=== PATIENT | male | born 1950 | race Hispanic/Latino ===

== ENCOUNTER → 2017-10-16 | Outpatient (CLI) | payer OTHER ==
[~2017-10-16] MED LIST: ALPR0.5T8 PO; CEPH500C2 PO; METO-391 PO; MIRT30TA6 PO; OMEP20CA10 PO; RIVA20TA PO; SERT100T12 PO; SOTA120T PO; SOTA80TA PO
== END | disposition home or self-care (01) ==
LOC: SHCH 13:00
PROVIDERS: ATTEND Internal Medicine Cardiovascular Disease
DX: I08.1 Rheumatic disorders of both mitral and tricuspid valves (principal); I50.22 Chronic systolic (congestive) heart failure; I48.1 Persistent atrial fibrillation
CPT/HCPCS: 93306

== ENCOUNTER 2017-11-02 10:02 | Inpatient (IN) | payer OTHER ==
[~2017-11-02] VITALS: Ht 180.3 cm; Wt 131.0 kg
[2017-11-02 10:55] VITALS: BP 146/90
[2017-11-02] MEDS ORDERED: FAMOTIDINE 20MG TAB 20 MG TAB PO SCH ×2 (11:00→21:00)
[2017-11-02] MEDS ORDERED: SODIUM CHLORIDE 0.9% 10 ML VIAL IVP PRN (11:00)
[2017-11-02] MEDS ORDERED: SOTALOL HCL 80 MG TABLET PO SCH (11:00)
[2017-11-02] MEDS ORDERED: METO-391 PO (11:18)
[2017-11-02] MEDS ORDERED: ALPR0.5T8 PO (11:18)
[2017-11-02] MEDS ORDERED: OMEP20CA10 PO (11:18)
[2017-11-02] MEDS ORDERED: MIRT30TA6 PO (11:18)
[2017-11-02] MEDS ORDERED: SERT100T12 PO (11:18)
[2017-11-02] MEDS ORDERED: RIVA20TA PO (11:18)
[2017-11-02 11:27] LABS: MEAN CORPUSCULAR HEMOGLOBIN 32.8 pg (27.0-33.0); MEAN CORPUSCULAR HGB CONC 34.3 g/dL (32.0-36.0); MEAN CORPUSCULAR VOLUME 95.6 fL (79-99); PLATELET COUNT (AUTO) 110 K/uL (130-400); RED BLOOD CELL COUNT(AUTO) 5.12 MIL/uL (4.50-6.20); RED CELL DISTRIBUTION WIDTH 15.7 % (11.0-15.5); WHITE BLOOD COUNT (AUTO) 5.4 K/uL (4.8-10.8)
[2017-11-02 11:43] LABS: ALANINE AMINOTRANSFERASE 45 U/L (12-78); ALBUMIN 3.3 g/dL (3.5-5.0); ASPARTATE AMINOTRANSFERASE 84 U/L (10-37); BILIRUBIN,TOTAL 1.6 mg/dL (0.2-1.0); CARBON DIOXIDE 30 mmol/L (21-32); CHLORIDE 105 mmol/L (101-111); CREATININE 1.3 mg/dL (0.5-1.5); GLOMERULAR FILTR. RATE CALC 59 mL/min (>60); GLUCOSE,RANDOM 130 mg/dL (70-105); POTASSIUM 4.3 mmol/L (3.5-5.1); SODIUM SERUM 141 mmol/L (136-145); TOTAL PROTEIN, SERUM 7.3 g/dL (6.0-8.3); UREA NITROGEN, BLOOD 12 mg/dL (7-18)
[2017-11-02 11:45] LABS: ALCOHOL, BLOOD < 3 mg/dL (0-10)
[2017-11-02 11:54] LABS: INR 1.75 (0.85-1.15); PARTIAL THROMBOPLASTIN TIME 41.3 SEC (26.3-35.5); PROTHROMBIN TIME 18.2 SEC (9.6-11.6)
[2017-11-02 12:25] LABS: BASOPHILS % (MANUAL) 1 % (0-2); EOSINOPHILS % (MANUAL) 3 % (1-6); LYMPHOCYTES % (MANUAL) 15 % (22-44); MAN.DIFF COMMENT-IMPRESSION MANUAL DIFFERENTIAL; MONOCYTES % (MANUAL) 11 % (2-9); PLATELET MORPHOLOGY COMMENT SLIGHTLY DECREASED; REACTIVE LYMPHOCYTES 13 % (0-0); SEGMENTED NEUTROPHILS % 57 % (40-70)
[2017-11-02] MEDS ORDERED: METOPROLOL TARTRATE 1 MG/ML 5ML VIAL IV PRN (12:30)
[2017-11-02] MEDS ORDERED: THIAMINE HCL IV SCH (12:45)
[2017-11-02] MEDS ORDERED: PHARMACY COMMUNICATION MISC ONE (12:45)
[2017-11-02] MEDS ORDERED: SODIUM CHLORIDE 0.9% IV SCH (12:45)
[2017-11-02] MEDS ORDERED: M V I IV SCH (12:45)
[2017-11-02] MEDS ORDERED: COMPOUND IV REFRIGERATED 1 EACH IVSOLN MISC PRN (13:00)
[2017-11-02] MEDS: ALPRAZOLAM 0.5 MG TABLET PO PRN (15:04)
[2017-11-02] MEDS: MAGNESIUM 2GM PREMIX 50ML 50 ML IV SCH (15:09)
[2017-11-02] MEDS ORDERED: HYDROCODONE/ACETAMINOPHEN 5/325 MG TAB PO PRN (15:30)
[2017-11-02] MEDS: HYDROCODONE/ACETAMINOPHEN 5/325 MG TAB PO PRN (15:58)
[2017-11-02 16:00] VITALS: BP 154/100
[2017-11-02 19:32] VITALS: BP 150/98
[2017-11-02] MEDS: MIRTAZAPINE 15 MG TABLET PO SCH (21:03)
[2017-11-02] MEDS: SOTALOL HCL 80 MG TABLET PO SCH (21:06)
[2017-11-02 23:48] VITALS: BP 126/75
[2017-11-03] MEDS ORDERED: LACTULOSE 20 GM/30 ML UDCUP PO PRN (01:15)
[2017-11-03] MEDS ORDERED: ONDANSETRON HCL 4 MG/2 ML VIAL IVP PRN (01:15)
[2017-11-03 03:23] VITALS: BP 129/93
[2017-11-03 03:52] LABS: HEMATOCRIT 47.3 % (42-54); MEAN CORPUSCULAR HEMOGLOBIN 32.9 pg (27.0-33.0); MEAN CORPUSCULAR HGB CONC 33.9 g/dL (32.0-36.0); MEAN CORPUSCULAR VOLUME 97.1 fL (79-99); NUCLEATED RED BLOOD CELLS 0.1 % (0.0-0.19); PLATELET COUNT (AUTO) 90 K/uL (130-400); RED BLOOD CELL COUNT(AUTO) 4.88 MIL/uL (4.50-6.20); RED CELL DISTRIBUTION WIDTH 15.5 % (11.0-15.5); WHITE BLOOD COUNT (AUTO) 4.1 K/uL (4.8-10.8)
[2017-11-03 04:02] LABS: CREATININE 1.1 mg/dL (0.5-1.5); MAGNESIUM 1.8 mg/dL (1.80-2.40); POTASSIUM 3.8 mmol/L (3.5-5.1)
[2017-11-03] MEDS: MAGNESIUM 2GM PREMIX 50ML 50 ML IV SCH (05:58)
[2017-11-03 07:00] VITALS: BP 154/92
[2017-11-03] MEDS: SOTALOL HCL 80 MG TABLET PO SCH ×2 (07:43→20:29)
[2017-11-03] MEDS: RIVAROXABAN 20 MG TABLET PO SCH (07:44)
[2017-11-03] MEDS: SERTRALINE HCL 50 MG TABLET PO SCH (07:44)
[2017-11-03] MEDS: PANTOPRAZOLE SODIUM 40 MG TABLET.DR PO SCH (07:44)
[2017-11-03] MEDS ORDERED: FAMOTIDINE 20MG TAB 20 MG TAB PO SCH (09:00)
[2017-11-03] MEDS ORDERED: RIVAROXABAN 20 MG TABLET PO SCH (09:00)
[2017-11-03] MEDS ORDERED: SOTALOL HCL 80 MG TABLET PO SCH (10:30)
[2017-11-03 11:00] VITALS: BP 145/96
[2017-11-03] MEDS: HYDROCODONE/ACETAMINOPHEN 5/325 MG TAB PO PRN ×2 (15:51→20:30)
[2017-11-03 15:52] LABS: APPEARANCE,URINE Clear (CLEAR); BILIRUBIN,URINE Negative (NEGATIVE); COLOR,URINE Yellow (YELLOW); GLUCOSE, URINE (UA) Negative (NEGATIVE); KETONES,URINE Negative (NEGATIVE); LEUKOCYTE ESTERASE ,URINE Moderate (NEGATIVE); NITRATE,URINE Negative (NEGATIVE); OCCULT BLOOD,URINE Nonhemolyzed Trace (NEGATIVE); PH,URINE 6.5 (5.0-8.0); PROTEIN,URINE Negative (NEGATIVE)
[2017-11-03 16:00] VITALS: BP 155/101
[2017-11-03 16:40] LABS: BACTERIA,URINE Rare /HPF (None Seen); SQUAMOUS EPITHELIAL CELL,UR Rare /HPF (0-2)
[2017-11-03 19:48] VITALS: BP 147/106
[2017-11-03] MEDS: MIRTAZAPINE 15 MG TABLET PO SCH (20:28)
[2017-11-03] MEDS: ALPRAZOLAM 0.5 MG TABLET PO PRN (21:29)
[2017-11-03 23:18] VITALS: BP 156/107
[2017-11-04 03:36] VITALS: BP 143/96
[2017-11-04 03:54] LABS: MEAN CORPUSCULAR HEMOGLOBIN 32.8 pg (27.0-33.0); MEAN CORPUSCULAR HGB CONC 33.9 g/dL (32.0-36.0); MEAN CORPUSCULAR VOLUME 96.8 fL (79-99); NUCLEATED RED BLOOD CELLS 0.1 % (0.0-0.19); PLATELET COUNT (AUTO) 97 K/uL (130-400); RED BLOOD CELL COUNT(AUTO) 4.96 MIL/uL (4.50-6.20); RED CELL DISTRIBUTION WIDTH 15.4 % (11.0-15.5); WHITE BLOOD COUNT (AUTO) 4.6 K/uL (4.8-10.8)
[2017-11-04 04:09] LABS: CREATININE 1.2 mg/dL (0.5-1.5); MAGNESIUM 1.9 mg/dL (1.80-2.40); PHOSPHORUS 3.3 mg/dL (2.5-4.9)
[2017-11-04 07:57] VITALS: BP 159/91
[2017-11-04] MEDS: SOTALOL HCL 80 MG TABLET PO SCH ×2 (08:35→20:36)
[2017-11-04 10:05] LABS: ALBUMIN 3.2 g/dL (3.5-5.0); BILIRUBIN,DIRECT 0.5 mg/dL (0.0-0.3); BILIRUBIN,TOTAL 1.5 mg/dL (0.2-1.0); TOTAL PROTEIN, SERUM 6.9 g/dL (6.0-8.3)
[2017-11-04 10:45] VITALS: BP 161/115
[2017-11-04] MEDS: RIVAROXABAN 20 MG TABLET PO SCH (13:25)
[2017-11-04] MEDS: FOLIC ACID 1 MG TABLET PO SCH (13:26)
[2017-11-04] MEDS: CEPHALEXIN 500 MG CAPSULE PO SCH ×2 (13:26→20:36)
[2017-11-04] MEDS: SERTRALINE HCL 50 MG TABLET PO SCH (13:26)
[2017-11-04] MEDS: THIAMINE HCL 100 MG TABLET PO SCH (13:26)
[2017-11-04] MEDS: MULTIVITAMIN TABLET PO SCH (13:27)
[2017-11-04] MEDS: PANTOPRAZOLE SODIUM 40 MG TABLET.DR PO SCH (13:27)
[2017-11-04 16:00] VITALS: BP 139/84
[2017-11-04 19:37] VITALS: BP 121/75
[2017-11-04] MEDS: HYDROCODONE/ACETAMINOPHEN 5/325 MG TAB PO PRN (19:57)
[2017-11-04] MEDS: MIRTAZAPINE 15 MG TABLET PO SCH (20:36)
[2017-11-04 23:29] VITALS: BP 136/45
[2017-11-05 03:59] VITALS: BP 103/71
[2017-11-05 05:01] LABS: CREATININE 1.3 mg/dL (0.5-1.5); MAGNESIUM 1.8 mg/dL (1.80-2.40); POTASSIUM 3.6 mmol/L (3.5-5.1)
[2017-11-05] MEDS: MAGNESIUM 2GM PREMIX 50ML 50 ML IV SCH (06:21)
[2017-11-05 07:00] VITALS: BP 123/88
[2017-11-05] MEDS: MULTIVITAMIN TABLET PO SCH (10:04)
[2017-11-05] MEDS: CEPHALEXIN 500 MG CAPSULE PO SCH (10:05)
[2017-11-05] MEDS: PANTOPRAZOLE SODIUM 40 MG TABLET.DR PO SCH (10:05)
[2017-11-05] MEDS: FOLIC ACID 1 MG TABLET PO SCH (10:05)
[2017-11-05] MEDS: THIAMINE HCL 100 MG TABLET PO SCH (10:05)
[2017-11-05] MEDS: SOTALOL HCL 80 MG TABLET PO SCH (10:05)
[2017-11-05] MEDS: RIVAROXABAN 20 MG TABLET PO SCH (10:05)
[2017-11-05] MEDS: SERTRALINE HCL 50 MG TABLET PO SCH (10:05)
[2017-11-05] MEDS ORDERED: CEPH500C2 PO (10:08)
[2017-11-05] MEDS ORDERED: SOTA80TA PO (10:08)
[2017-11-05 11:00] VITALS: BP 130/81
[2017-11-05] MEDS ORDERED: POTASSIUM CHLORIDE 20 MEQ ERTAB PO ONE (12:45)
[2017-11-05] MEDS: HYDROCODONE/ACETAMINOPHEN 5/325 MG TAB PO PRN (14:47)
[2017-11-05] MEDS ORDERED: SOTA120T PO (14:51)
== END 2017-11-05 15:50 | disposition home or self-care (01) | DRG 309 ==
LOC: EDH 10:02 → 2AH 10:03
PROVIDERS: ADMIT Internal Medicine; ATTEND Internal Medicine
PROC: 5A2204Z Restoration of Cardiac Rhythm, Single (ICD-10-PCS; principal; 2017-11-05)
DX: I48.1 Persistent atrial fibrillation (principal); I50.22 Chronic systolic (congestive) heart failure; D69.6 Thrombocytopenia, unspecified; I42.0 Dilated cardiomyopathy; I11.0 Hypertensive heart disease with heart failure; E78.5 Hyperlipidemia, unspecified; F10.10 Alcohol abuse, uncomplicated; F32.9 Major depressive disorder, single episode, unspecified; G47.33 Obstructive sleep apnea (adult) (pediatric); I25.10 Atherosclerotic heart disease of native coronary artery without angina pectoris; I48.2 Chronic atrial fibrillation; I25.5 Ischemic cardiomyopathy; K21.9 Gastro-esophageal reflux disease without esophagitis; K70.30 Alcoholic cirrhosis of liver without ascites; K76.0 Fatty (change of) liver, not elsewhere classified; Z79.01 Long term (current) use of anticoagulants; Z88.8 Allergy status to other drugs, medicaments and biological substances; Z88.1 Allergy status to other antibiotic agents
CPT/HCPCS: 36415; 76700; 80048; 80053; 80061; 80076; 81001; 83735; 84100; 85025; 85027; 85610; 85730; 92960; 93005; G0480; J3411; J3475; J7030

== ENCOUNTER 2019-01-20 15:22 | Inpatient (IN) | payer OTHER ==
[~2019-01-20] VITALS: Ht 180.3 cm; Wt 137.3 kg
[~2019-01-20 15:22] MED LIST changes: -METO-391 PO; -SOTA80TA PO
[2019-01-20 15:41] LABS: BASOPHILS % (AUTO) 1.2 % (0.0-5.0); EOSINOPHILS % (AUTO) 0.4 % (0.0-8.0); HEMATOCRIT 48.2 % (42-54); LYMPHOCYTES % (AUTO) 21.7 % (21.0-51.0); MEAN CORPUSCULAR HEMOGLOBIN 32.5 pg (27.0-33.0); MEAN CORPUSCULAR HGB CONC 33.8 g/dL (32.0-36.0); MEAN CORPUSCULAR VOLUME 96.1 fL (79-99); MONOCYTES % (AUTO) 13.3 % (3.0-13.0); NEUTROPHILS % (AUTO) 63.4 % (40.0-77.0); NUCLEATED RED BLOOD CELLS 0.1 % (0.0-0.19); PLATELET COUNT (AUTO) 122 K/uL (130-400); RED BLOOD CELL COUNT(AUTO) 5.01 MIL/uL (4.50-6.20); RED CELL DISTRIBUTION WIDTH 17.3 % (11.0-15.5); WHITE BLOOD COUNT (AUTO) 8.1 K/uL (4.8-10.8)
[2019-01-20 15:55] LABS: CREATININE 1.1 mg/dL (0.5-1.5); POTASSIUM 4.2 mmol/L (3.5-5.1)
[2019-01-20 15:57] LABS: INR 1.37 (0.85-1.15); PARTIAL THROMBOPLASTIN TIME 32.1 SEC (26.3-35.5); PROTHROMBIN TIME 14.3 SEC (9.6-11.6)
[2019-01-20 16:00] LABS: BILIRUBIN,TOTAL 3.8 mg/dL (0.2-1.0); TOTAL PROTEIN, SERUM 6.8 g/dL (6.0-8.3)
[2019-01-20] MEDS ORDERED: HYDROCODONE/ACETAMINOPHEN 10/325 MG TAB ONE (18:33)
[2019-01-20] MEDS ORDERED: HYDROCODONE/ACETAMINOPHEN 5/325 MG TAB PO PRN ×2 (19:30)
[2019-01-20] MEDS ORDERED: ACETAMINOPHEN 650 MG SUPPOSITORY RC PRN ×2 (19:30)
[2019-01-20] MEDS ORDERED: KETOROLAC TROMETHAMINE 15MG/ML IV PRN (19:30)
[2019-01-20] MEDS ORDERED: NITROGLYCERIN 0.4 MG SL TAB SL PRN (19:30)
[2019-01-20] MEDS ORDERED: ONDANSETRON HCL 4 MG/2 ML VIAL IV PRN (19:30)
[2019-01-20 20:00] VITALS: BP 128/96
[2019-01-20 20:55] LABS: AMYLASE 54 U/L (25-115); LIPASE 193 U/L (114-286)
[2019-01-20] MEDS: SODIUM CHLORIDE 0.9% 1000ML 1,000 ML IV SCH (21:32)
[2019-01-20] MEDS: FAMOTIDINE/PF 20 MG/2 ML VIAL IV SCH (21:32)
[2019-01-20 22:11] LABS: HEMATOCRIT 44.9 % (42-54)
[2019-01-20] MEDS ORDERED: DIGO250T84 PO (22:17)
[2019-01-20] MEDS ORDERED: TRAM100T34 PO (22:17)
[2019-01-20] MEDS ORDERED: DILT120C12 PO (22:17)
[2019-01-20] MEDS ORDERED: NYST15CR TP (22:17)
[2019-01-20] MEDS ORDERED: SERT50TA12 PO (22:17)
[2019-01-20] MEDS ORDERED: METO-409 PO (22:17)
[2019-01-20] MEDS ORDERED: RIVA20TA PO (22:17)
[2019-01-20 22:52] LABS: APPEARANCE,URINE Clear (CLEAR); BILIRUBIN,URINE Moderate (NEGATIVE); GLUCOSE, URINE (UA) Negative (NEGATIVE); KETONES,URINE Negative (NEGATIVE); LEUKOCYTE ESTERASE ,URINE Moderate (NEGATIVE); NITRATE,URINE Positive (NEGATIVE); OCCULT BLOOD,URINE Trace (NEGATIVE); PROTEIN,URINE POS 1+ mg/dL (NEGATIVE)
[2019-01-20 22:53] LABS: COLOR,URINE Orange (YELLOW)
[2019-01-20 23:15] LABS: AMPHET/METH SCREEN,URINE NEGATIVE (NEGATIVE); BARBITURATE SCREEN, URINE NEGATIVE (NEGATIVE); BENZODIAZEPINES SCREEN,URINE POSITIVE (NEGATIVE); CANNABINOID SCREEN,URINE NEGATIVE (NEGATIVE); COCAINE SCREEN,URINE NEGATIVE (NEGATIVE); OPIATE SCREEN,URINE NEGATIVE (NEGATIVE); PHENCYCLIDINE SCREEN,URINE NEGATIVE (NEGATIVE)
[2019-01-20 23:29] LABS: AMORPHOUS SEDIMENT,UR Many /LPF (None Seen); BACTERIA,URINE Rare /HPF (None Seen); MUCUS,URINE Moderate LPF (None Seen); RBC,URINE 0-1 /HPF (0-1); SQUAMOUS EPITHELIAL CELL,UR Few /HPF (0-2)
[2019-01-21 00:19] VITALS: BP 140/81
[2019-01-21] MEDS: MORPHINE SULFATE 2 MG/ML 1ML SYG IV PRN (02:10)
[2019-01-21 04:04] VITALS: BP 113/62
[2019-01-21 04:10] LABS: BASOPHILS % (AUTO) 1.1 % (0.0-5.0); EOSINOPHILS % (AUTO) 1.9 % (0.0-8.0); HEMATOCRIT 42.9 % (42-54); LYMPHOCYTES % (AUTO) 23.1 % (21.0-51.0); MEAN CORPUSCULAR HEMOGLOBIN 33.6 pg (27.0-33.0); MEAN CORPUSCULAR HGB CONC 34.5 g/dL (32.0-36.0); MEAN CORPUSCULAR VOLUME 97.6 fL (79-99); MONOCYTES % (AUTO) 12.2 % (3.0-13.0); NEUTROPHILS % (AUTO) 61.7 % (40.0-77.0); NUCLEATED RED BLOOD CELLS 0.1 % (0.0-0.19); PLATELET COUNT (AUTO) 86 K/uL (130-400); RED CELL DISTRIBUTION WIDTH 17.3 % (11.0-15.5); WHITE BLOOD COUNT (AUTO) 5.3 K/uL (4.8-10.8)
[2019-01-21 04:45] LABS: ALBUMIN 2.4 g/dL (3.5-5.0); BILIRUBIN,TOTAL 3.3 mg/dL (0.2-1.0); POTASSIUM 4.2 mmol/L (3.5-5.1); TOTAL PROTEIN, SERUM 5.7 g/dL (6.0-8.3)
[2019-01-21] MEDS: SODIUM CHLORIDE 0.9% 1000ML 1,000 ML IV SCH (05:17)
[2019-01-21 07:30] VITALS: BP 159/87
[2019-01-21] MEDS: FAMOTIDINE/PF 20 MG/2 ML VIAL IV SCH (09:37)
[2019-01-21 10:20] LABS: HEMATOCRIT 44.4 % (42-54)
[2019-01-21] MEDS ORDERED: ALPRAZOLAM 0.5 MG TABLET PO PRN (10:45)
[2019-01-21 11:00] VITALS: BP 164/97
--- NOTE | 2019-01-21 11:33 | NUR ---
PHOENIX Chacon met with pt who states he lives alone. Pt reports he completes ADLS with difficulty, getting to point he needs help. Pt drives, uses [facility]. Sees Dr Jerrod Valencia and uses [facility]. Brother Pineda [phone] and sister in law Isabel [phone] are ER contacts and will transport home at [place] Addendum: 01/21/19 at 1135 by ASHLEY MORTON Amended: Links added.
[2019-01-21] MEDS: MORPHINE SULFATE 4 MG/1ML SYG IV PRN ×2 (13:43→20:46)
--- NOTE | 2019-01-21 15:30 | NUR ---
TELEPHONE CALL FROM DR SALDANA , ORDERS RECEIVED FOR PATIENT TO BE NPO @ [facility] AND CONSENT AND SCHEDULE FOR EGD IN AM , ORDER FAXED TO HOUSE AND CENTRAL SCHEDULING CONTACTED AND CASE SCHEDULED FOR 629.
[2019-01-21 16:00] VITALS: BP 151/92
[2019-01-21 16:45] LABS: HEMATOCRIT 46.8 % (42-54)
[2019-01-21 20:13] VITALS: BP 167/117
[2019-01-21] MEDS: METOPROLOL TARTRATE 50 MG TAB PO SCH (20:42)
[2019-01-21] MEDS: SERTRALINE HCL 50 MG TABLET PO SCH (20:42)
[2019-01-21] MEDS: MIRTAZAPINE 15 MG TABLET PO SCH (20:42)
[2019-01-21] MEDS: NYSTATIN 30 GM CREAM.GM. TP SCH (20:45)
[2019-01-21 22:27] LABS: HEMATOCRIT 45.6 % (42-54)
[2019-01-21] MEDS: CEFTRIAXONE SODIUM 1 GM IVP SCH ×2 (23:20)
[2019-01-22] VITALS (19 sets, daily range): BP systolic 89–159; BP diastolic 31–99
[2019-01-22] MEDS ORDERED: EPHEDRINE SULFATE 50 MG/ML AMPULE ONE (07:07)
--- NOTE | 2019-01-22 07:40 | NUR ---
REPORT CALLED ON S/P EGD , PATIENT ALERT AND ORIENTATED X 3 EGD NEGATIVE FINDINGS HERNIA, MAY ADVANCE DIET TOLERATES B/P 122/76 P 83 R 19 O SATS 95 ON [address] SALDANA MAY RESUME XARELTO IF OK WITH CARDIOLOGY. HOLDING PATIENT TO MONITOR LOW BLOOD PRESSURE BEFORE BRING BACK TO FLOOR.
[2019-01-22] MEDS: PANTOPRAZOLE SODIUM 40 MG TABLET.DR PO SCH (09:45)
[2019-01-22] MEDS: METOPROLOL TARTRATE 50 MG TAB PO SCH ×2 (09:45→21:48)
[2019-01-22] MEDS: DILTIAZEM HCL 120 MG CAP.SR.24H PO SCH (09:45)
[2019-01-22] MEDS: NYSTATIN 30 GM CREAM.GM. TP SCH ×2 (09:46→21:54)
[2019-01-22] MEDS: MORPHINE SULFATE 2 MG/ML 1ML SYG IV PRN ×2 (15:57→21:50)
[2019-01-22] MEDS: DIGOXIN 250 MCG TABLET PO SCH (16:04)
[2019-01-22] MEDS: MIRTAZAPINE 15 MG TABLET PO SCH (21:48)
[2019-01-22] MEDS: SERTRALINE HCL 50 MG TABLET PO SCH (21:48)
[2019-01-22] MEDS: CEFTRIAXONE SODIUM 1 GM IVP SCH (23:28)
[2019-01-23 00:31] VITALS: BP 146/65
[2019-01-23 04:00] VITALS: BP 122/76
[2019-01-23 07:23] LABS: MEAN CORPUSCULAR HEMOGLOBIN 33.2 pg (27.0-33.0); MEAN CORPUSCULAR HGB CONC 33.8 g/dL (32.0-36.0); MEAN CORPUSCULAR VOLUME 98.1 fL (79-99); NUCLEATED RED BLOOD CELLS 0.2 % (0.0-0.19); PLATELET COUNT (AUTO) 76 K/uL (130-400); RED BLOOD CELL COUNT(AUTO) 4.28 MIL/uL (4.50-6.20); RED CELL DISTRIBUTION WIDTH 17.8 % (11.0-15.5); WHITE BLOOD COUNT (AUTO) 4.5 K/uL (4.8-10.8)
[2019-01-23 07:27] LABS: POTASSIUM 3.3 mmol/L (3.5-5.1)
[2019-01-23 08:53] VITALS: BP 134/77
[2019-01-23] MEDS: METOPROLOL TARTRATE 50 MG TAB PO SCH (09:26)
[2019-01-23] MEDS: PANTOPRAZOLE SODIUM 40 MG TABLET.DR PO SCH (09:26)
[2019-01-23] MEDS: DILTIAZEM HCL 120 MG CAP.SR.24H PO SCH (09:26)
[2019-01-23] MEDS: NYSTATIN 30 GM CREAM.GM. TP SCH (09:27)
[2019-01-23] MEDS: MORPHINE SULFATE 2 MG/ML 1ML SYG IV PRN (09:32)
[2019-01-23 11:54] VITALS: BP 119/70
[2019-01-23] MEDS ORDERED: CEFD300C3 PO (14:13)
[2019-01-23] MEDS ORDERED: POTASSIUM CHLORIDE 20 MEQ ERTAB PO SCH ×2 (14:15→16:00)
--- NOTE | 2019-01-23 16:30 | NUR ---
PATIENT GIVEN DISCHARGE INSTRUCTIONS AND VERBALIZED UNDERSTANDING , PATIENT INSTRUCTED TO FOLLOW-UP WITH HIS CAVING GUIDE ABOUT RESUMING HIS XARELTO FOR HIS AFIB OR OTHER OPTIONS . NO QUESTIONS OR CONCERNS AT THIS TIME .IV D/C WITH CATHETER INTACT AND SITE DRESSED, MONITOR UNIT NOTIFIED AND TELEMETRY REMOVED PATIENT TAKING VIA WHEELCHAIR TO LOBBY AND LEFT WITH BROTHER FOR HOME.
[2019-01-23] MEDS: DIGOXIN 250 MCG TABLET PO SCH (16:31)
== END 2019-01-23 16:30 | disposition home health service (06) | DRG 378 ==
LOC: EDH 15:22 → EDHIP 18:25 → 3DH 20:05
PROVIDERS: ADMIT Internal Medicine; ATTEND Internal Medicine
PROC: 0DJ08ZZ Inspection of Upper Intestinal Tract, Via Natural or Artificial Opening Endoscopic (ICD-10-PCS; principal; 2019-01-22)
DX: K29.71 Gastritis, unspecified, with bleeding (principal); N39.0 Urinary tract infection, site not specified; Z68.41 Body mass index [BMI] 40.0-44.9, adult; D68.59 Other primary thrombophilia; E44.0 Moderate protein-calorie malnutrition; I48.2 Chronic atrial fibrillation; E66.01 Morbid (severe) obesity due to excess calories; F32.9 Major depressive disorder, single episode, unspecified; E78.5 Hyperlipidemia, unspecified; G47.33 Obstructive sleep apnea (adult) (pediatric); I10 Essential (primary) hypertension; K44.9 Diaphragmatic hernia without obstruction or gangrene; B96.4 Proteus (mirabilis) (morganii) as the cause of diseases classified elsewhere; I25.10 Atherosclerotic heart disease of native coronary artery without angina pectoris; Z79.01 Long term (current) use of anticoagulants; Z88.8 Allergy status to other drugs, medicaments and biological substances; Z82.49 Family history of ischemic heart disease and other diseases of the circulatory system
CPT/HCPCS: 36415; 43235; 80048; 80053; 80305; 81001; 82150; 82270; 83690; 84484; 85014; 85018; 85025; 85027; 85610; 85730; 87077; 87088; 87186; 93005; G0378; J0696; J2270; J3490